=== PATIENT | female | born 1985 | race Caucasian/White ===

== ENCOUNTER 2016-11-19 16:35 | Outpatient (CLI) | payer OTHER ==
[~2016-11-19] VITALS: Ht 165.1 cm; Wt 76.7 kg
[~2016-11-19 16:35] MED LIST: PREN-39 PO
[2016-11-19 17:18] VITALS: Ht 165.1 cm; Wt 76.7 kg
[2016-11-19] MEDS ORDERED: PRENAT PO (17:21)
--- NOTE | 2016-11-19 17:45 | RADRPT ---
PROCEDURE: US OB. CLINICAL INDICATION: Size and dates TECHNIQUE: Multiple sonographic images of the pelvis were obtained. Transabdominal imaging only w as performed. The images were reviewed on a PACS workstation. COMPARISON: No prior studies are available for comparison. FINDINGS: There is a single live intrauterine gestation. Cardiac activity is present with 128 beats per minut e. position is cephalic. Measurements were made in order to determine age. The results are as follows: BPD = 8.26 cm HC = 29.84 cm AC = 29.09 cm FL = 6.47 cm. Estimated gestational age of approximately 33 weeks 2 days. The estimated date of delivery is 01/05/2017. The EFW = 2138 g, 34.3 %ile. The placenta is anterior. There is no evidence for an abruption or placenta previa. There are no adnexal masses. The OSIRIS measures 7.9 cm. IMPRESSION: 1. Single live intrauterine gestation of approximately 33 weeks 2 days, by ultrasound criteria. 2. The estimated date of delivery is 01/05/2017. 3. The estimated weight is 2138 g, 34.3 %ile. 4. The OSIRIS measures 7.9 cm. RPTAT: HH .Chary Field MD, Date Time Electronically viewed and signed by .Chary Field MD, on 11/19/2016 17:45 .G/
[2016-11-19] MEDS ORDERED: LACTATED RINGER'S 500 ML IV ONE (19:00)
--- NOTE | 2016-11-20 00:02 | TRIAGE ---
OB Triage Datetime Report Generated by CPN: 11/20/2016 00:01 Datetime: 11/19/2016 20:40 Stage of : OB Triage Labor Evaluation Frequency: OCCAS Monitor Mode: External Duration (sec)2399: 60-120 Quality: Mild Pattern: Normal: <= 5 Contractions in 10 Minutes Resting Tone [place]: Relaxed Heart Rate FHR Baseline Rate: 135 Monitor Mode: External US Variability: Moderate 6-25 bpm Accelerations: 15X15 Decelerations: None Category: Category I Pain Assessment Pain Scale: 0 Pain Presence: None/Denies Pain Type: N/A Pain Goal: 3 Datetime: 11/19/2016 20:22 Vaginal Exam Nitrazine: Negative Datetime: 11/19/2016 19:40 Stage of : OB Triage Labor Evaluation Frequency: OCCAS Monitor Mode: External Duration (sec)2399: 60-120 Quality: Mild Resting Tone [place]: Relaxed Heart Rate FHR Baseline Rate: 135 Monitor Mode: External US Variability: Moderate 6-25 bpm Accelerations: 15X15 Decelerations: None Category: Category I Pain Assessment Pain Scale: 0 Pain Presence: None/Denies Pain Type: N/A Pain Goal: 3 Datetime: 11/19/2016 18:39 Stage of : OB Triage Datetime: 11/19/2016 18:38 Labor Evaluation Frequency: OCCAS Monitor Mode: External Duration (sec)2399: 40-50 Quality: Mild Resting Tone [place]: Relaxed Heart Rate FHR Baseline Rate: 135 Monitor Mode: External US Variability: Moderate 6-25 bpm Decelerations: None Category: Category I Pain Assessment Pain Scale: 0 Pain Presence: None/Denies Pain Type: N/A Pain Goal: 3 Datetime: 11/19/2016 17:31 Vaginal Exam Nitrazine: Negative Datetime: 11/19/2016 17:23 Stage of : OB Triage Assessment Type: Triage Maternal Assessment Level of Consciousness: Fully Conscious DTR's/Clonus: DTRs 2+; No Clonus Headache: Denies Blurred Vision: No Respiratory Effort: Unlabored; Regular Rhythm; Equal Expansion Breath Sounds, Left: Clear and Equal Breath Sounds, Right: Clear and Equal Nausea/Vomiting: Denies RUQ Epigastric Pain: Denies Facial Edema: None Temperature Route: Axillary Fall Risk Assessment History of Falling: (0) No Secondary Diagnosis: (0) No Ambulatory Aid: (0) Bedrest/Nurse Assist IV Therapy: (0) No Gait: (0) Normal/Bedrest/Immobile Mental Status: (0) Oriented to Own Ability Fall Score: 0 Fall Risk Score Definition: No Risk: No action required Labor Evaluation Frequency: 0 Monitor Mode: External Resting Tone [place]: Relaxed Heart Rate FHR Baseline Rate: 135 Monitor Mode: External US Variability: Moderate 6-25 bpm Decelerations: None Category: Category I Pain Assessment Pain Scale: 0 Pain Presence: None/Denies Pain Type: N/A Datetime: 11/19/2016 17:22 EGA: 33.3 Datetime: 11/19/2016 17:21 Time of Arrival: 11/19/2016 17:00 Arrived By: Ambulatory Arrived From: Home Chief Complaint: C/O SROM LAST NIGHT, DENIES BLEEDING, OCCAS UC'S Movement: Present Contractions: Occasional Rupture of Membranes: Unsure Vaginal Bleeding: None Vaginal Discharge: Present Recent Sexual Intercouse: Denies Abdominal Trauma: Not Applicable Patient Complaints: Cramping Time Provider Notified: 11/19/2016 18:39 Provider Notified: RETA Initial Plan: MONITOR, NITRAZINE, EFW, OSIRIS
== END 2016-11-19 21:02 | disposition home or self-care (01) ==
LOC: OBT 16:35 → L-D 16:35 → OBT 21:02
PROVIDERS: ATTEND Obstetrics & Gynecology
DX: O26.893 Other specified pregnancy related conditions, third trimester (principal); Z3A.33 33 weeks gestation of pregnancy
CPT/HCPCS: 36415; 76815; 84112; 96360; 96361; J7120; Z7500; G0463

== ENCOUNTER 2016-11-20 10:12 | Outpatient (CLI) | payer OTHER ==
--- NOTE | 2016-11-19 22:24 | PN ---
Date/Time of Note Date/Time of Note DATE: 11/19/16 TIME: 22:19 OB Subjective Subjective Subjective 31 Year-old with SIUP at 33 3/7 wks presents with a chief complaint of possible leakage of fluid. She has been receiving her care with Dr. Gomez. She states good movement. She denies nausea, vomiting, shortness of breath, chest pain, and abdominal pain between contractions, headache, visual changes, vaginal bleeding OB Objective Objective Objective Physical Exam: General: Patient appears well, alert and oriented, NAD, appropriate mood and affect ABD: gravid, soft, non-tender. Back: No CVA tenderness (B/L) LE: No clubbing, cyanosis, edema, thigh or calf tenderness bilaterally FHT: 135 bpm , moderate variability with acceleration, no deceleration-category I Contractions: None Speculum exam: No vaginal bleeding or LOF seen, Neg Nitrazine test. US performed: Pau of 7.9 cm OB Assessment/Plan Other plan: 31 Year-old with SIUP at 33 3/7 wks presents for R/O of SROM. Neg Nitazine test. OB us performed, PAU of 7.9 - FHR: No sign of metabolic acidosis- Category I - Continuous EFM, toco - Contractions: None. - Reactive NST - Symptoms and sign of labor, preeclampsia, kick count discussed with patient, she voiced understanding. All of her questions answered. - Patient was discharged home in stable condition with f/u US for PAU tomorrow. The appropriate discharge instructions provided. I would like patient to have close follow-up tomorrow and then with her primary physician or outpatient clinic in 1-2 days or return to the ER for worsening symptoms or any other urgent concerns. HENNA PALMA Nov 19, 2016 22:24
[~2016-11-20] VITALS: Ht 165.1 cm; Wt 77.3 kg
[~2016-11-20 10:12] MED LIST changes: +PRENAT PO
[2016-11-20 10:17] VITALS: Ht 165.1 cm; Wt 77.3 kg
[2016-11-20 10:18] VITALS: BP 101/59; PULSE 99; RESP 18
--- NOTE | 2016-11-20 10:52 | RADRPT ---
PROCEDURE: US OB biophysical profile. CLINICAL INDICATION: Low OSIRIS TECHNIQUE: Multiple sonographic images of the pelvis were obtained. The images were reviewed on a PACS workstation. COMPARISON: Obstetrical ultrasound from 11/19/2016 FINDINGS: There is a single viable intrauterine gestation. Cardiac activity is present with 142 beats per min shania. There is a vertex presentation. The placenta is anterior. There is no evidence of placental abruption. There is a normal amount of amniotic fluid with an OSIRIS = 11.5 cm. Biophysical profile: movement 2/2 tone 2/2. breathing 2/2 OSIRIS 2/2 Total 04/30 RPTAT: AA . IMPRESSION: Normal biophysical profile. Normal OSIRIS of 11.5 cm. Physician Rolo Date Time Electronically viewed and signed by Physician Rolo on 11/20/2016 10:51 RA/
--- NOTE | 2016-11-20 12:09 | TRIAGE ---
OB Triage Datetime Report Generated by CPN: 11/20/2016 12:08 Datetime: 11/20/2016 11:33 Stage of : OB Triage Frequency: X1 Monitor Mode: External Duration (sec)2399: 100 Quality: Mild Resting Tone [place]: Relaxed FHR Baseline Rate: 135 Variability: Moderate 6-25 bpm Accelerations: 15X15 Decelerations: Variable Category: Category I Comments: APPROPRIATE FOR GA Pain Presence: None/Denies Datetime: 11/20/2016 10:21 Time of Arrival: 11/20/2016 10:05 EGA: 33.4 Arrived By: Ambulatory Arrived From: Home Chief Complaint: OSIRIS follow up Movement: Present Contractions: Occasional Rupture of Membranes: Denies Vaginal Bleeding: None Vaginal Discharge: Denies Recent Sexual Intercouse: Denies Abdominal Trauma: Not Applicable Patient Complaints: None Time Provider Notified: 11/20/2016 11:05 Provider Notified: RETA Initial Plan: NST, OSIRIS Datetime: 11/20/2016 10:20 Assessment Type: Triage Level of Consciousness: Fully Conscious DTR's/Clonus: DTRs 2+; No Clonus Headache: Denies Blurred Vision: No Respiratory Effort: Unlabored; Regular Rhythm; Equal Expansion Breath Sounds, Left: Clear and Equal Breath Sounds, Right: Clear and Equal Nausea/Vomiting: Denies RUQ Epigastric Pain: Denies Lower Extremities Edema: None Degree: None Upper Extremities Edema: None Degree: None Facial Edema: None History of Falling: (0) No Secondary Diagnosis: (0) No Ambulatory Aid: (0) Bedrest/Nurse Assist IV Therapy: (0) No Gait: (0) Normal/Bedrest/Immobile Mental Status: (0) Oriented to Own Ability Fall Score: 0 Fall Risk Score Definition: No Risk: No action required Datetime: 11/20/2016 10:15 Temperature Route: Oral Datetime: 11/20/2016 10:12 Stage of : OB Triage
--- NOTE | 2016-11-20 13:22 | CONS ---
Date/Time of Note Date/Time of Note DATE: 11/20/16 TIME: 13:15 Consultation Date/Type/Reason Admit Date/Time Initial Consult Date November 20, 2016 OB triage report This patient is a 30 years old 4 para 2 1 delivery at term to other delivery at 35 weeks gestation 1 her last delivery was via section her due date is January 04, 2007 makes her now 33 weeks and 4 days She came to to the OB triage due to oligohydramnios the day before yesterday she had an ultrasound done on her OSIRIS was reported at 7.9 cm. At this time she does not have any contractions or any other complaint On brief general examination she is a well-developed well-nourished lady not in labor late state Her blood pressure is 101/59 pulse rate 99 temperature 97.9 heart tone is a mention around 135-104 Her abdomen is soft occasional contraction heart tone is normal with good variability and acceleration no T-cell. As I mentioned no contractions Pelvic exam was not performed extremities are normal no edema no tenderness Her ultrasound was repeated today her biophysical profile was reported at 8/8 and the OSIRIS was 11.5 cm which is much improvement from the one done 2 days ago Disposition. With improvement in the amount of amniotic fluid she was discharged home to be followed in the clinic End of dictation Exam/Review of Systems Vital Signs Vitals Vital Signs Date Time Temp Pulse Resp B/P Pulse Ox O2 Delivery O2 Flow Rate FiO2 11/20/16 10:18 97.9 99 18 101/59 Room Air ELIZABETH NOVOA MD Nov 20, 2016 13:22
== END 2016-11-20 11:50 | disposition home or self-care (01) ==
LOC: OBT 10:12 → L-D 10:12 → OBT 11:50
PROVIDERS: ATTEND Obstetrics & Gynecology
DX: O60.03 Preterm labor without delivery, third trimester (principal); Z3A.33 33 weeks gestation of pregnancy
CPT/HCPCS: 76818; Z7500; G0463

== ENCOUNTER 2016-12-19 12:12 | Outpatient (CLI) | payer OTHER ==
[~2016-12-19] VITALS: Ht 165.1 cm; Wt 78.6 kg
[2016-12-19 12:47] VITALS: BP 90/53; PULSE 91; RESP 18; Ht 165.1 cm; Wt 78.6 kg
--- NOTE | 2016-12-19 13:36 | RADRPT ---
PROCEDURE: US OB biophysical profile. CLINICAL INDICATION: decreased movements, contractions TECHNIQUE: Multiple sonographic images of the pelvis were obtained. The images were reviewed on a PACS workstation. COMPARISON: 11/20/2016 FINDINGS: There is a single viable intrauterine gestation. Cardiac activity is present with 141 beats per min nenana. There is a vertex presentation. The placenta is anterior. There is no evidence of placental abruption. There is a normal amount of amniotic fluid with an OSIRIS = 10.9 cm. Biophysical profile: movement 2/2 tone 2/2. breathing 2/2 OSIRIS 2/2 Total 04/30 RPTAT: AA . IMPRESSION: Normal biophysical profile. . .Guy Cee MD, MD Date Time Electronically viewed and signed by .Guy Cee MD, on 12/19/2016 13:36 .S/
--- NOTE | 2016-12-19 19:43 | QN ---
Documentation Comment 31-year-old with IUP at 37 weeks and 5 days with history of 1 she was sent from Dr. Sirena moya on the office due to complaint of contractions. Had a history of delivery at 35 weeks. Also had a history of 1. She was sent for rule out labor. She denied any leaking of fluid, vaginal bleeding or decreased movement Patient denies any other symptoms. Physical examination: General appearance: Alert and oriented 4 is not in any acute distress Abdomen: Soft, nontender, no rebound tenderness, no guarding, no rigidity Fundal height consistent with gestational age NST: No contractions seen on the monitor, category 1 tracing BPP: 04/30 OSIRIS: 10.9 Patient has been scheduled for repeat at 39 weeks Patient is comfortable. No evidence of labor. PROCEDURE: US OB biophysical profile. CLINICAL INDICATION: decreased movements, contractions TECHNIQUE: Multiple sonographic images of the pelvis were obtained. The images were reviewed on a PACS workstation. COMPARISON: 11/20/2016 FINDINGS: There is a single viable intrauterine gestation. Cardiac activity is present with 141 beats per minute. There is a vertex presentation. The placenta is anterior. There is no evidence of placental abruption. There is a normal amount of amniotic fluid with an OSIRIS = 10.9 cm. Biophysical profile: movement 2/2 tone 2/2. breathing 2/2 OSIRIS 2/2 Total 04/30 RPTAT: AA . IMPRESSION: Normal biophysical profile. . Assessment: 1. IUP at 37 weeks and 5 days History of 1. No evidence of uterine contractions or labor No evidence of PROM testing reassuring NST: Category 1 Plan: DC home Follow-up with Dr. Quinonez in the office in 3 days for repeat examination Continue weekly NST per Dr. Michael Chun Labor precaution and kick count discussed ELMA FRANCE MD Dec 19, 2016 19:43
== END 2016-12-19 14:50 | disposition home or self-care (01) ==
LOC: OBT 12:12 → L-D 12:13 → OBT 14:50
PROVIDERS: ATTEND Obstetrics & Gynecology
DX: O36.8130 Decreased fetal movements, third trimester, not applicable or unspecified (principal); Z3A.37 37 weeks gestation of pregnancy
CPT/HCPCS: 76818; Z7500; G0463

== ENCOUNTER 2017-01-02 05:26 | Inpatient (IN) | payer OTHER ==
--- NOTE | 2016-12-30 22:53 | PREOPHP ---
DATE OF ADMISSION: 01/02/2017 The patient is having on 01/02. HISTORY OF PRESENT ILLNESS: She is a 31-year-old female, 4, para 1, abortions 2 with 1 jackelyn ng child, previous section in 2006 for placenta previa, then she had spontaneous abortions and also ____ voluntary termination and the present with the same partner. The patient's EDC is 01/09/2017 by early ultrasound. This patient had an uneventful somewhere else. Janessa moya had the care. She came to me at 37 weeks bringing some papers from other clinic, and she is scheduled for a repeat section. She has been advised for possible risks and possible c omplications of the procedure with her alternatives and options. Written information was provided. PAST HISTORY: As I said, previous section. SOCIAL HISTORY: She does not drink or smoke. ALLERGIES: NO ALLERGIES. FAMILY HISTORY: Hypertension on her father's side. REVIEW OF SYSTEMS: Noncontributory. PHYSICAL EXAMINATION: VITAL SIGNS: Stable with blood pressure 110/60, pulse is 80, respirations 16. She weighs 176 pound s. HEAD AND NECK: Normal. CHEST: Clear. HEART: Normal sinus rhythm. LUNGS: Clear. BREASTS: Soft, nontender. No masses. ABDOMEN: Soft. Uterus at term with normal heart tones, cephalic presentation. Normal pulses and no edema. PELVIC: No changes of dilatation, membranes or effacement. EXTREMITIES: Normal pulses and normal reflexes. DIAGNOSES: 1. Previous section. 2. Term . PLAN: She is undergoing a repeat section. She has been advised of the possible risks and possible complications of the procedure with her alternatives and options. Written information was provided. She had no more questions and agreed to go ahead with the procedure with full understandi ng and no more questions. Dictated By: EDDIE CAN/ERUM Conf#: [id number] DID#: [id number]
[~2017-01-02] VITALS: Ht 165.1 cm; Wt 80.4 kg
[~2017-01-02 05:26] MED LIST changes: -PRENAT PO
[2017-01-02 05:46] VITALS: Ht 165.1 cm; Wt 80.4 kg
[2017-01-02 05:47] VITALS: BP 109/58; PULSE 90; RESP 18
[2017-01-02] MEDS ORDERED: MISOPROSTOL 200 MCG TAB PR PRN ×2 (06:00→08:30)
[2017-01-02] MEDS ORDERED: CARBOPROST 250 MCG INJ IM PRN ×2 (06:00→08:30)
[2017-01-02] MEDS ORDERED: METHYLERGONOVINE 0.2 MG INJ IM PRN ×2 (06:00→08:30)
[2017-01-02] MEDS ORDERED: OXYTOCIN 30 UNITS/LR 500 ML IV PRN ×2 (06:00→08:30)
[2017-01-02] MEDS ORDERED: OXYTOCIN 30 UNITS/LR 500 ML IV SCH (06:00)
[2017-01-02] MEDS ORDERED: CEFAZOLIN 2 GM/50 ML (PMX) 50 ML IV SCH (06:00)
[2017-01-02] MEDS: LACTATED RINGER'S 1,000 ML IV SCH ×5 (06:07→19:23)
[2017-01-02 06:12] LABS: ADD SCAN DIFF NO
[2017-01-02 06:16] LABS: BASOPHIL # 0.1 10^3/ul (0.0-0.1); BASOPHILS % 0.6 % (0.0-2.0); EOSINOPHILS # 0.1 10^3/ul (0.0-0.5); EOSINOPHILS % 1.5 % (0.0-7.0); HEMATOCRIT 34.7 % (37.0-47.0); HEMOGLOBIN 11.6 g/dl (12.0-16.0); LYMPHOCYTES # 2.2 10^3/ul (0.8-2.9); LYMPHOCYTES % 27.8 % (15.0-51.0); MEAN CORPUSCULAR HEMOGLOBIN 32.5 pg (29.0-33.0); MEAN CORPUSCULAR HGB CONC 33.4 g/dl (32.0-37.0); MEAN CORPUSCULAR VOLUME 97.2 fl (82.0-101.0); MONOCYTE # 0.6 10^3/ul (0.3-0.9); MONOCYTES % 7.6 % (0.0-11.0); NEUTROPHIL # 4.5 10^3/ul (1.6-7.5); NEUTROPHILS % 57.8 % (39.0-77.0); PLATELET COUNT 212 10^3/UL (140-415); RED BLOOD COUNT 3.57 10^6/ul (4.20-5.40); RED CELL DISTRIBUTION WIDTH 13.5 % (11.5-14.5); WHITE BLOOD COUNT 7.8 10^3/ul (4.8-10.8)
[2017-01-02 06:27] LABS: INR 0.86; PARTIAL THROMBOPLASTIN TIME 26.9 Sec (25.0-35.0); PROTIME 11.7 Sec (12.2-14.2); PT RATIO 0.9
[2017-01-02] MEDS ORDERED: CITRIC ACID/NA CITRATE 30 ML CUP ONE (07:40)
[2017-01-02] MEDS ORDERED: METOCLOPRAMIDE 10 MG INJ ONE (07:49)
[2017-01-02] MEDS ORDERED: morphine SULFATE/PF (10 MG/10 ML) INJ ONE (07:49)
[2017-01-02] MEDS ORDERED: KETOROLAC 30 MG INJ ONE (07:49)
[2017-01-02] MEDS ORDERED: CEFAZOLIN 1 GM INJ ONE (08:00)
[2017-01-02] MEDS ORDERED: PHENYLephrine (100 MCG/ML) 5ML SYG ONE (08:06)
[2017-01-02] MEDS ORDERED: NA PHOSPHATE/BIPHOS 133 ML ENEMA PR PRN (08:30)
[2017-01-02] MEDS ORDERED: MEPERIDINE 25 MG INJ IV PRN (08:30)
[2017-01-02] MEDS ORDERED: METHYLERGONOVINE 0.2 MG TAB PO PRN (08:30)
[2017-01-02] MEDS ORDERED: LANOLIN 7 GM TUBE TOP PRN (08:30)
[2017-01-02] MEDS: CEFAZOLIN 2 GM/50 ML (PMX) 50 ML IV SCH ×3 (08:30→23:34)
[2017-01-02] MEDS ORDERED: METOCLOPRAMIDE 10 MG INJ IV PRN (08:30)
[2017-01-02] MEDS ORDERED: DIPHENHYDRAMINE 50 MG INJ IV PRN ×2 (08:30→12:30)
[2017-01-02] MEDS ORDERED: ACETAMINOPHEN/CODEINE #3 TAB PO PRN ×2 (08:30)
[2017-01-02] MEDS ORDERED: ONDANSETRON 4 MG INJ IV PRN ×2 (08:30→12:30)
[2017-01-02] MEDS ORDERED: HYDROmorphONE (0.2 MG/ML) 10ML SYG IV PRN ×3 (08:30)
[2017-01-02] MEDS ORDERED: CITRIC ACID/NA CITRATE 30 ML CUP PO ONE (08:30)
[2017-01-02] MEDS ORDERED: FENTAnyl 50 MCG/ML VIAL ONE (08:31)
[2017-01-02] MEDS ORDERED: OXYTOCIN 30 UNITS/LR 500 ML IV ONE (08:46)
[2017-01-02] MEDS: SENNA/DOCUSATE NA (8.6MG/50MG) TAB PO SCH ×2 (09:00→21:00)
[2017-01-02] MEDS ORDERED: PROPOFOL 20 ML ONE (09:11)
--- NOTE | 2017-01-02 09:15 | OPR ---
Date/Time of Note Date/Time of Note DATE: 01/02/17 TIME: 09:14 Operative Report Free Text/Dictation REPEAT C/S Procedure Date: Jan 02, 2017 Preoperative Diagnosis PREVIOUS C/S Postoperative Diagnosis SAME Surgeon: EDDIE DAVE MD [employer] Chief: JAY BARNES M.D. Anesthesia: spinal Anesthesiologist: BIANCA LU MD Estimated Blood Loss: other Specimens PLACENTA Complications: None Pt Condition Post Procedure: stable Disposition: PACU EDDIE DAVE MD Jan 02, 2017 09:15
--- NOTE | 2017-01-02 09:23 | HPN ---
Date/Time of Note Date/Time of Note DATE: 01/02/17 TIME: 09:23 Interval H&P Admission Note Pt. seen H&P reviewed: No system changes EDDIE DAVE MD Jan 02, 2017 09:23
[2017-01-02] MEDS: KETOROLAC 30 MG INJ IV PRN (10:36)
[2017-01-02] MEDS: OXYTOCIN 30 UNITS/LR 500 ML IV SCH ×2 (10:38→14:43)
--- NOTE | 2017-01-02 10:49 | OPR ---
DATE OF OPERATION: 01/02/2017 PREOPERATIVE DIAGNOSES: 1. Term . 2. Previous section. POSTOPERATIVE DIAGNOSES 1. Term . 2. Previous section. PROCEDURE PERFORMED: Repeat low segment transverse section. SURGEON: Eddie Griffiths MD GLASS SELECTOR: Ty Prasad MD ANESTHESIOLOGIST: Rayne Butler MD ANESTHESIA: Spinal. COMPLICATIONS: None. DESCRIPTION OF PROCEDURE: The patient was given spinal anesthesia, placed in the supine position. Ann catheter was placed in the bladder. The abdomen had been prepped and draped. An elliptical i ncision was made around the previous old scar and the scar was removed. The abdomen was opened in l miranda without difficulties. Abdominal cavity was reached and it was noticed that the lower uterine segment was very thin and almost transparent. An Mehran retractor was placed and a bladder flap was made. The incision was made slightly higher from the lower part of the segment and the amniotic fl uid was clear. The incision was made and it was increased laterally on either side for about 3 inch es. The baby's head was delivered followed by the body. The cord was clamped and cut. The baby wa s handed over to the manager business management team. The cord blood was obtained. The placenta was removed and the uterus was opened with a ring forceps at the cervical area. The uterus was cleaned out and angelo sed in 2 layers using #1 Monocryl continuous suture imbedding the first line of suture and interrupt ed sutures with 0 MH chromic to reinforce certain areas. The tubes and ovaries were normal. The abdominal cavity was cleaned out and closed in layers using 2-0 Vicryl suture for peritoneum, #0 PDS looped suture for the fascia, 2-0 Vicryl for the subcutaneous tissue, and 3-0 Monocryl subcutic ular to the skin. Steri-Strips and Dermabond were used as well. The patient tolerated the procedur e well and left the OR awake and stable. Sponge counts, instrument counts, needle counts were corre ct. Intravenous antibiotics were given for prophylaxis. Blood loss was approximately 600 mL. The urine was clear at the end of the procedure. Dictated By: EDDIE CAN/ERUM Conf#: [id number] DID#: [id number]
[2017-01-02] MEDS ORDERED: KETOROLAC 30 MG INJ IV PRN (12:30)
[2017-01-02] MEDS ORDERED: morphine 2 MG INJ IV PRN (12:30)
[2017-01-02] MEDS ORDERED: NALOXONE (0.4 MG/ML) INJ IV PRN (12:30)
[2017-01-02] MEDS: IBUPROFEN 800 MG TAB PO SCH ×2 (14:00→21:44)
[2017-01-02 20:00] VITALS: BP 90/54; PULSE 77; RESP 18
[2017-01-02 23:50] VITALS: BP 89/49; PULSE 65; RESP 18
[2017-01-03] MEDS: LACTATED RINGER'S 1,000 ML IV SCH (03:52)
[2017-01-03 04:45] VITALS: BP 89/52; PULSE 76; RESP 18
[2017-01-03] MEDS: IBUPROFEN 800 MG TAB PO SCH (06:00)
[2017-01-03] MEDS: KETOROLAC 30 MG INJ IV PRN (06:44)
[2017-01-03 08:07] LABS: ADD SCAN DIFF NO
[2017-01-03 08:15] LABS: BASOPHILS % 0.3 % (0.0-2.0); EOSINOPHILS # 0.1 10^3/ul (0.0-0.5); EOSINOPHILS % 0.8 % (0.0-7.0); HEMATOCRIT 35.9 % (37.0-47.0); HEMOGLOBIN 11.8 g/dl (12.0-16.0); LYMPHOCYTES # 1.6 10^3/ul (0.8-2.9); LYMPHOCYTES % 13.7 % (15.0-51.0); MEAN CORPUSCULAR HGB CONC 32.9 g/dl (32.0-37.0); MEAN CORPUSCULAR VOLUME 97.3 fl (82.0-101.0); MEAN PLATELET VOLUME 10.2 fl (7.4-10.4); MONOCYTE # 0.8 10^3/ul (0.3-0.9); NEUTROPHIL # 9.1 10^3/ul (1.6-7.5); NEUTROPHILS % 76.4 % (39.0-77.0); PLATELET COUNT 199 10^3/UL (140-415); RED BLOOD COUNT 3.69 10^6/ul (4.20-5.40); RED CELL DISTRIBUTION WIDTH 13.3 % (11.5-14.5); WHITE BLOOD COUNT 11.9 10^3/ul (4.8-10.8)
[2017-01-03] MEDS ORDERED: CEFAZOLIN 2 GM/50 ML (PMX) 50 ML IVPB SCH (09:00)
[2017-01-03] MEDS: SENNA/DOCUSATE NA (8.6MG/50MG) TAB PO SCH ×2 (09:21→21:54)
--- NOTE | 2017-01-03 12:55 | PN ---
Date/Time of Note Date/Time of Note DATE: 01/03/17 TIME: 12:53 Assessment/Plan Lines/Catheters IV Catheter Type (from Nrsg): Saline Lock Subjective 24 Hr Interval Summary day 1 post c/s afebrile , feels good , not up yet,. stable, not in pain incision dry Constitutional: BM, ambulates, flatus, improved, no complaints, urine output Feeding: advancing diet Pain Control: well controlled Detailed Summary Eyes: no complaints ENT: no complaints Respiratory: no complaints Cardiovascular: no complaints Gastrointestinal: no complaints Genitourinary: no complaints Musculoskeletal: no complaints Skin: no complaints Neurologic: no complaints Endocrine: no complaints Lymphatic: no complaints Psychological: nl mood/affect, no complaints Immunologic: no complaints Exam/Review of Systems Vital Signs Vitals Vital Signs Date Time Temp Pulse Resp B/P Pulse Ox O2 Delivery O2 Flow Rate FiO2 01/03/17 07:28 Room Air 01/03/17 04:45 98.5 76 18 89/52 Intake and Output 01/02/17 01/02/17 01/03/17 15:00 23:00 07:00 Intake Total 2642 ml 1050 ml Output Total 1475 ml 1600 ml 4600 ml Balance 1167 ml -1600 ml -3550 ml Exam Constitutional: alert, oriented, well developed Psych: nl mood/affect, no complaints Head: atraumatic, normocephalic Eyes: EOMI, nl conjunctiva, nl lids, nl sclera ENMT: mucosa pink and moist, nl external ears & nose, nl lips & teeth, nl nasal mucosa & septum Neck: non-tender, supple Respiratory: clear to auscultation, normal air movement Cardiovascular: nl pulses, regular rate and rhythm Gastrointestinal: nl liver, spleen, non-tender, soft Musculoskeletal: nl extremities to inspection, nl gait and stance Extremities: normal pulses Neurological: DIRECTOR OF UNDERGRADUATE ADMISSIONS II-XII intact, nl mental status, nl speech, nl strength Skin: nl turgor, rash or lesions Lymph: nl lymph nodes Results Result Diagram: 01/03/17 0723 EDDIE DAVE MD Jan 03, 2017 12:55
[2017-01-03] MEDS: KETOROLAC 30 MG INJ IV SCH ×2 (16:49→22:38)
[2017-01-03 20:00] VITALS: BP 100/57; PULSE 69; RESP 19
[2017-01-04] MEDS: KETOROLAC 30 MG INJ IV SCH ×2 (04:30→06:02)
[2017-01-04 06:14] VITALS: BP 105/56; PULSE 88; RESP 19
[2017-01-04 07:40] VITALS: BP 97/56; PULSE 68; RESP 18
--- NOTE | 2017-01-04 07:56 | PN ---
Date/Time of Note Date/Time of Note DATE: 01/03/17 TIME: 07:57 Anesthesia note: A 31 year female POD # 1 after duramorph for post op pain. patient is foing fine. pain is controlled, no N/V, or itching, or headache. back is clean no inflammation . care per surgeon. Assessment/Plan VTE Prophylaxis VTE Prophylaxis Intervention: ambulation Lines/Catheters IV Catheter Type (from Nrsg): Saline Lock Exam/Review of Systems Vital Signs Vitals Vital Signs Date Time Temp Pulse Resp B/P Pulse Ox O2 Delivery O2 Flow Rate FiO2 01/04/17 06:40 Room Air 01/04/17 06:14 98.4 88 19 105/56 Intake and Output 01/03/17 01/03/17 01/04/17 15:00 23:00 07:00 Intake Total 1115 ml 550 ml Output Total 1300 ml 900 ml Balance -185 ml -350 ml Results Result Diagram: 01/03/17 0723 Medications Medications Current Medications Methylergonovine Maleate (Methergine) 0.2 mg Q6H PRN PO VAGINAL BLEEDING; Start 01/02/17 at 08:30 Acetaminophen/ Codeine Phosphate (Tylenol No.3) 1 tab Q4H PRN PO PAIN LEVEL 4- 6 Last administered on 01/03/17 13:19; Admin Dose 1 TAB; Start 01/02/17 at 08: 30 Acetaminophen/ Codeine Phosphate (Tylenol No.3) 2 tab Q4H PRN PO PAIN LEVEL 7- 10; Start 01/02/17 at 08:30 Ibuprofen (Motrin) 800 mg Q8 PO ; Start 01/02/17 at 14:00; Status Future Hold Simethicone (Mylicon) 160 mg Q8H PRN PO DISTENSION/GAS/BLOATING; Start at 08:30 Senna/Docusate Sodium (Senokot-S) 1 tab BID PO Last administered on 01/03/17 21:54; Admin Dose 1 TAB; Start 01/02/17 at 09:00 Sodium Biphosphate/ Sodium Phosphate (Fleet Enema) 133 ml DAILY PRN NE CONSTIPATION; Start 01/02/17 at 08:30 Diphtheria/ Tetanus/Acell Pertussis (Adacel) 0.5 ml ONCE ONCE IM* ; Start at 09:00; Stop 01/05/17 at 09:01 Measles/Mumps/ Rubella Vaccine Live 0.5 ml 0.5 ml ONCE ONCE SC* ; Start at 09:00; Stop 01/05/17 at 09:01 Oxytocin/Lactated Ringer's 500 ml @ 0 mls/hr ONCE PRN IV For Hemorrhage Management; Start 01/02/17 at 08:30 Methylergonovine Maleate (Methergine) 0.2 mg ONCE PRN IM VAGINAL BLEEDING; Start 01/02/17 at 08:30 Carboprost Tromethamine (Hemabate) 250 mcg ONCE PRN IM VAGINAL BLEEDING; Start 01/02/17 at 08:30 Misoprostol (Cytotec) 1,000 mcg ONCE PRN NE VAGINAL BLEEDING; Start 01/02/17 at 08:30 Ketorolac Tromethamine (Toradol) 30 mg Q6H IV Last administered on 01/04/17t 06 :02; Admin Dose 30 MG; Start 01/03/17 at 16:30; Stop 01/06/17 at 16:29 BIANCA LU MD Jan 04, 2017 07:56
[2017-01-04 08:24] LABS: ADD SCAN DIFF NO
[2017-01-04 08:35] LABS: BASOPHILS % 0.4 % (0.0-2.0); EOSINOPHILS # 0.1 10^3/ul (0.0-0.5); HEMATOCRIT 35.3 % (37.0-47.0); HEMOGLOBIN 11.5 g/dl (12.0-16.0); LYMPHOCYTES # 1.5 10^3/ul (0.8-2.9); LYMPHOCYTES % 13.1 % (15.0-51.0); MEAN CORPUSCULAR HEMOGLOBIN 31.8 pg (29.0-33.0); MEAN CORPUSCULAR HGB CONC 32.6 g/dl (32.0-37.0); MEAN CORPUSCULAR VOLUME 97.5 fl (82.0-101.0); MEAN PLATELET VOLUME 10.4 fl (7.4-10.4); MONOCYTE # 0.7 10^3/ul (0.3-0.9); MONOCYTES % 5.8 % (0.0-11.0); NEUTROPHIL # 8.9 10^3/ul (1.6-7.5); NEUTROPHILS % 78.5 % (39.0-77.0); PLATELET COUNT 197 10^3/UL (140-415); RED BLOOD COUNT 3.62 10^6/ul (4.20-5.40); RED CELL DISTRIBUTION WIDTH 13.4 % (11.5-14.5); WHITE BLOOD COUNT 11.3 10^3/ul (4.8-10.8)
[2017-01-04] MEDS: SENNA/DOCUSATE NA (8.6MG/50MG) TAB PO SCH ×2 (09:25→23:05)
[2017-01-04] MEDS ORDERED: KETOROLAC 30 MG INJ IV PRN (10:30)
[2017-01-04] MEDS: IBUPROFEN 800 MG TAB PO SCH ×3 (12:33→23:05)
--- NOTE | 2017-01-04 14:04 | PN ---
Date/Time of Note Date/Time of Note DATE: 01/04/17 TIME: 14:03 Assessment/Plan Lines/Catheters IV Catheter Type (from Nrsg): Peripheral IV Subjective 24 Hr Interval Summary post c/s day 2 afebrile feels better incision healing well passing gases Constitutional: BM, ambulates, flatus, improved, no complaints, urine output Feeding: advancing diet Pain Control: well controlled Detailed Summary Eyes: no complaints ENT: no complaints Respiratory: no complaints Cardiovascular: no complaints Gastrointestinal: no complaints Genitourinary: no complaints Musculoskeletal: no complaints Skin: no complaints Neurologic: no complaints Endocrine: no complaints Lymphatic: no complaints Psychological: nl mood/affect, no complaints Immunologic: no complaints Exam/Review of Systems Vital Signs Vitals Vital Signs Date Time Temp Pulse Resp B/P Pulse Ox O2 Delivery O2 Flow Rate FiO2 01/04/17 07:40 98.1 68 18 97/56 Room Air Intake and Output 01/03/17 01/03/17 01/04/17 15:00 23:00 07:00 Intake Total 1115 ml 550 ml Output Total 1300 ml 900 ml Balance -185 ml -350 ml Exam Constitutional: alert, oriented, well developed Psych: nl mood/affect, no complaints Head: atraumatic, normocephalic Eyes: EOMI, nl conjunctiva, nl lids, nl sclera ENMT: mucosa pink and moist, nl external ears & nose, nl lips & teeth, nl nasal mucosa & septum Neck: non-tender, supple Respiratory: clear to auscultation, normal air movement Cardiovascular: nl pulses, regular rate and rhythm Gastrointestinal: nl liver, spleen, non-tender, soft Musculoskeletal: nl extremities to inspection, nl gait and stance Extremities: normal pulses Neurological: BILINGUAL MEDICAL RECEPTIONIST II-XII intact, nl mental status, nl speech, nl strength Skin: nl turgor, rash or lesions Lymph: nl lymph nodes Results Result Diagram: 01/04/17 0750 EDDIE DAVE MD Jan 04, 2017 14:04
[2017-01-04] MEDS ORDERED: BISACODYL (EC) 5 MG TAB PO ONE (14:30)
[2017-01-04 15:45] VITALS: BP 99/55; PULSE 55; RESP 16
[2017-01-04 19:50] VITALS: BP 108/58; PULSE 58; RESP 18
[2017-01-05 04:15] VITALS: BP 105/56; RESP 18
[2017-01-05] MEDS: IBUPROFEN 800 MG TAB PO SCH (06:05)
[2017-01-05 07:38] LABS: ADD SCAN DIFF NO
[2017-01-05 07:44] LABS: BASOPHIL # 0.1 10^3/ul (0.0-0.1); BASOPHILS % 0.6 % (0.0-2.0); EOSINOPHILS # 0.2 10^3/ul (0.0-0.5); EOSINOPHILS % 2.3 % (0.0-7.0); HEMATOCRIT 38.4 % (37.0-47.0); HEMOGLOBIN 12.3 g/dl (12.0-16.0); LYMPHOCYTES # 2.1 10^3/ul (0.8-2.9); LYMPHOCYTES % 24.4 % (15.0-51.0); MEAN CORPUSCULAR HEMOGLOBIN 31.7 pg (29.0-33.0); MEAN PLATELET VOLUME 10.3 fl (7.4-10.4); MONOCYTE # 0.6 10^3/ul (0.3-0.9); MONOCYTES % 7.3 % (0.0-11.0); NEUTROPHIL # 5.6 10^3/ul (1.6-7.5); PLATELET COUNT 216 10^3/UL (140-415); RED BLOOD COUNT 3.88 10^6/ul (4.20-5.40); RED CELL DISTRIBUTION WIDTH 13.4 % (11.5-14.5); WHITE BLOOD COUNT 8.8 10^3/ul (4.8-10.8)
[2017-01-05 08:23] VITALS: BP_SYST 94; PULSE 69; RESP 20
[2017-01-05] MEDS ORDERED: MEASLES,MUMPS,RUBELLA VACCINE INJ SC* ONE (09:00)
[2017-01-05] MEDS ORDERED: DIPHTH/TET/ACEL PERTUSS (ADULT) 0.5 ML VIAL IM* ONE (09:00)
[2017-01-05] MEDS: SENNA/DOCUSATE NA (8.6MG/50MG) TAB PO SCH (09:49)
--- NOTE | 2017-01-05 11:53 | PD.PPDC ---
[employer] Discharge Instruction Condition Patient Condition: Good Diet Diet: Resume Regular Diet Activity/Restrictions Activity: Normal Activity May Shower Restrictions: No Exercising No Lifting No Driving No Sexual Activity Nothing in the Vagina No [place] No Tampons, douche Wound/Drain Care Instructions Wound/Drain Care Instructions: Remove Steri Strips in 1 week Follow-up Follow-up with Physician: 2, Week/Weeks Return to clinic for HEAD OF DIGITAL Instructions: Fever greater than 101 Chills Worsening abdominal pain Excessive Vaginal Bleeding More than 2 pads per hour Unable to tolerate diet OB Instructions: Breast Tenderness Depression Blurried Vision Headache Surgical Instructions: Incisional Drainage Incisional Redness EDDIE DAVE MD Jan 05, 2017 11:53
--- NOTE | 2017-01-05 13:18 | DS ---
DATE OF ADMISSION: 01/02/2017 DATE OF DISCHARGE: 01/05/2017 PROCEDURES DONE: Repeat section. COMPLICATIONS: None. HISTORY: This is a 31-year-old female, 4, para 1, abortions 2, with 1 living child, a previ ous section. She was scheduled for a repeat section at 39 weeks and she was admit manny on the 12th for the section. This patient did very well after surgery. Her laboratory testing was near normal after delivery and she was ambulatory, with a clean incision, with bowel mo vements, tolerating a diet, voiding well, with pain controlled with p.o. medications. The patient h ad requested to go home and she has been sent home on Tylenol No. 3 and ibuprofen p.r.n. She was di scharged stable in good condition and with further instructions to see me if she has any problems, c all me if she has any problems, or come and see me, even without an appointment. Otherwise she will see me in a week. FINAL DIAGNOSIS: Term , previous section, repeat section, and normal deli very. Dictated By: EDDIE CAN/EURM Conf#: [id number] DID#: [id number]
== END 2017-01-05 12:45 | disposition home or self-care (01) | DRG 766 ==
LOC: L-D 05:26 → PP1 13:13
PROVIDERS: ADMIT Obstetrics & Gynecology; ATTEND Obstetrics & Gynecology
PROC: 10D00Z1 Extraction of Products of Conception, Low, Open Approach (ICD-10-PCS; principal; 2017-01-02 07:30)
DX: O34.211 Maternal care for low transverse scar from previous cesarean delivery (principal); Z37.0 Single live birth; Z3A.37 37 weeks gestation of pregnancy
CPT/HCPCS: 85025; 85610; 85730; 86592; 86850; 86900; 86901; 87340; 90715; 99464; J0690; J1885; J2274; J2370; J2405; J2590; J2765; J3010; J7120